=== PATIENT | female | born 1980 | race Caucasian/White ===

== ENCOUNTER 2018-02-25 12:42 | Day surgery (SDC) | payer OTHER ==
[~2018-02-25] VITALS: Ht 172.7 cm; Wt 147.5 kg
[~2018-02-25 12:42] MED LIST: CETI5 PO; CHOL10002 PO; CLIN300 PO; DEPO PROVERA; DOCU100 PO; HYDACE10B PO; HYDACE5 PO; HYDR1TAB94 PO; IBUP800; METF500; MULVITMIND PO; MULVITMINE PO; Maxalt10 MG; NAPR500 PO; OMEP20ER PO; ONDA4 PO; OXYACE5T; Prilosec Otc20 MG; RANI150 PO; RXHYDACE PO; RXONDA4ODT MM; SERT100 PO; SERT50 PO; SPIR25; STOMUL PO
[2018-02-25] MEDS ORDERED: Norco 10-325 T1 EACH PO (13:31)
== END 2018-02-25 15:03 | disposition home or self-care (01) ==
LOC: ORSCSDS 12:42
PROVIDERS: Orthopaedic Surgery
PROC: 01N50ZZ Release Median Nerve, Open Approach (ICD-10-PCS; principal; 2018-02-25 14:05)
DX: G56.01 Carpal tunnel syndrome, right upper limb (principal); E78.5 Hyperlipidemia, unspecified; G47.33 Obstructive sleep apnea (adult) (pediatric); J45.909 Unspecified asthma, uncomplicated; Z79.899 Other long term (current) drug therapy; E66.01 Morbid (severe) obesity due to excess calories; Z68.43 Body mass index [BMI] 50.0-59.9, adult
CPT/HCPCS: J2250

== ENCOUNTER 2018-04-15 07:53 | Day surgery (SDC) | payer OTHER ==
[~2018-04-15] VITALS: Ht 172.7 cm; Wt 147.1 kg
[~2018-04-15 07:53] MED LIST changes: +Norco 10-325 T1 EACH PO
== END 2018-04-15 10:02 | disposition home or self-care (01) ==
LOC: ORSCSDS 07:53
PROVIDERS: Orthopaedic Surgery
PROC: 01N50ZZ Release Median Nerve, Open Approach (ICD-10-PCS; principal; 2018-04-15 09:20)
DX: G56.02 Carpal tunnel syndrome, left upper limb (principal); E78.5 Hyperlipidemia, unspecified; J45.909 Unspecified asthma, uncomplicated; Z79.899 Other long term (current) drug therapy; E66.01 Morbid (severe) obesity due to excess calories; Z68.42 Body mass index [BMI] 45.0-49.9, adult
CPT/HCPCS: J2250; J3010

== ENCOUNTER → 2018-09-17 | Outpatient (CLI) | payer OTHER ==
[2018-09-17 12:30] LABS: U Amphetamine Screen Not Detected; U Barbituate Screen Not Detected; U Benzodiazapine Screen Not Detected; U Buprenorphine Screen Not Detected; U Cannabinoids Screen Not Detected; U Cocaine Screen Not Detected; U Methadone Screen Not Detected; U Methamphetamine Screen Not Detected; U Opiates Screen DETECTED; U Oxycodone Screen Not Detected; U Phencyclidine Screen Not Detected; U Propoxyphene Screen Not Detected
== END | disposition home or self-care (01) ==
LOC: LAB SHORT 10:40 → LAB 10:40
PROVIDERS: Internal Medicine
DX: Z51.81 Encounter for therapeutic drug level monitoring (principal); Z79.899 Other long term (current) drug therapy

== ENCOUNTER → 2019-12-16 | Outpatient (CLI) | payer SELFPAY ==
[2019-12-16 14:33] LABS: U Opiates Screen DETECTED
[2019-12-16 14:34] LABS: U Amphetamine Screen Not Detected; U Barbituate Screen Not Detected; U Benzodiazapine Screen Not Detected; U Buprenorphine Screen Not Detected; U Cannabinoids Screen Not Detected; U Cocaine Screen Not Detected; U Methadone Screen Not Detected; U Methamphetamine Screen Not Detected; U Oxycodone Screen Not Detected; U Propoxyphene Screen Not Detected
== END | disposition home or self-care (01) ==
LOC: LAB 12:38 → LAB SHORT 12:38
PROVIDERS: Nurse Practitioner Family
DX: Z51.81 Encounter for therapeutic drug level monitoring (principal); Z79.899 Other long term (current) drug therapy

== ENCOUNTER → 2022-04-07 | Outpatient (CLI) | payer OTHER | END | disposition home or self-care (01) | LOC: LAB SHORT 09:10 | DX: N20.1 Calculus of ureter (principal) | CPT/HCPCS: 81050 ==

== ENCOUNTER → 2022-09-07 | Outpatient (CLI) | payer OTHER | END | disposition home or self-care (01) | LOC: LAB 18:42 → LAB SHORT 18:42 | DX: N10 Acute pyelonephritis (principal) | CPT/HCPCS: 87077; 87086; 87186 ==

== ENCOUNTER → 2024-08-31 | Outpatient (CLI) | payer OTHER ==
[2024-08-31 13:56] LABS: Very Low Density Lipoprot Chol 38 mg/dL (6-32)
[2024-08-31 14:03] LABS: Cholesterol 217 mg/dL (50-200); HDL Cholesterol 43 mg/dL (>39); LDL/HDL RATIO 3.2; Low Density Lipoprotein Chol 136 mg/dL (0-110); Triglycerides 190 mg/dL (30-160)
== END ==
LOC: LAB SHORT 09:25 → LAB 09:25
PROVIDERS: Family Medicine
DX: E66.01 Morbid (severe) obesity due to excess calories (principal)
CPT/HCPCS: 80061; 83036; 84443